=== PATIENT | female | born 2000 | race Hispanic/Latino ===

== ENCOUNTER 2023-04-30 07:50 | Emergency (ER) | payer OTHER | END 2023-04-30 19:00 | disposition home or self-care (01) | LOC: EDH 07:50 | DX: N93.9 Abnormal uterine and vaginal bleeding, unspecified (principal); Z53.21 Procedure and treatment not carried out due to patient leaving prior to being seen by health care provider ==

== ENCOUNTER 2024-06-18 20:54 | Emergency (ER) | payer BC ==
[~2024-06-18] VITALS: Ht 165.1 cm; Wt 158.8 kg
--- NOTE | 2024-06-18 20:57 | NUR ---
UA CUP PROVIDED
--- NOTE | 2024-06-18 21:54 | ERN ---
General Chief Complaint: Ankle Problem Stated Complaint: BILATERAL ANKLE PAIN Time Seen by MD: 20:56 Time Seen by Midlevel: 20:56 Source: patient History of Present Illness Initial Comments Patient Is a pleasant 23-year-old female presenting to the emergency department with bilateral ankle pain. Patient states she recently started a new job and has been on her feet for prolonged period of time. She developed swelling and pain to both ankles. Denies any direct injury. No other symptoms reported at this time. Patient denies taking any medications on a daily basis. Allergies: Coded Allergies: No Known Allergies (Unverified Allergy, Unknown, 06/18/24) Home Meds Active Scripts Ketorolac Tromethamine (Ketorolac Tromethamine) 10 Mg Tablet, 1 TAB PO TID for pain for 5 Days, #15 TAB 0 Refills Prov:JERZY FRY 06/18/24 Past Medical History Past Medical History: Anemia Past Surgical History: None Female( History) LMP: Jun 15, 2024 ROS Dictation CONSTITUTIONAL: Negative except for HPI HEAD/FACE: Negative except for HPI EENT: Negative except for HPI RESPIRATORY: Negative except for HPI GASTROINTESTINAL/ABDOMINAL: Negative except for HPI GENITOURINARY: Negative except for HPI MUSCULOSKELETAL: Negative except for HPI INTEGUMENTARY: Negative except for HPI NEUROLOGICAL/PSYCH: Negative except for HPI HEMATOLOGIC/LYMPHATIC: Negative except for HPI All Systems Negative, Except as noted above. 13 point review of systems assessed and all negative except for above. Physical Exam Physical Exam Dictation Vital Signs reviewed General Appearance: Alert, oriented x 3, no acute distress, well developed, nourished. Head and Face: non-traumatic. Eyes: PERRL, pink conjunctivas, eyelid no trauma, anterior chamber with arcus senilis. Ears: Pinnas intact and no signs of trauma or erythema ear canals clear and no discharge TM no erythema Nose: No discharge, no bleeding. Oropharynx: Mouth normal, tongue pink, pharynx clear,no erythema, tonsils no exudates, no abscesses noted, mucous membrane moist Neck: Supple, non-tender, no thyromegaly, no masses, no JVD, no bruits Breast:Deferred Chest:No tenderness, no crepitus, no paradoxical movement, no retractions Lungs:Clear, well-ventilated, symmetric, no rales, no wheezing, no rhonchi, no stridor, good breath sounds bilaterally Heart: Regular rate, regular rhythm, no murmur, no gallops Vascular: no peripheral edema, Abdomen: Soft, positive bowel sounds, nondistended, no guarding, nontender, no rebound, no masses no hepatomegaly, no splenomegaly, no Greene's sign, no hernias. Rectal: Deferred Genital: Deferred Neurological: Normal speech, motor function intact, sensory function intact Musculoskeletal: Neck nontender, full range of motion, back nontender, full range of motion, Extremities: nontender, full range of motion Skin: Color pink, dry, no turgor, no rash, no lacerations, no abrasions, no contusions. Lymphatic: Deferred MDM MDM: Differential diagnosis: Ankle sprain, ankle fracture, ankle dislocation There are no social concerns with this patient. Prescription drug management Prescriptions will include: Toradol Medical management and examination interpretation discussions were had by me with other qualified healthcare professionals as indicated for the patient's care. ED Course Orders Procedure Category Date Status Time Ankle Comp 3+Vws Genet RAD 06/18/24 Resulted 21:14 Vital Signs Date Time Temp Pulse Resp B/P (MAP) Pulse Ox O2 Delivery O2 Flow Rate FiO2 06/18/24 21:29 100.0 99 20 89/ 98 Room Air* 0 21 06/18/24 20:55 100.0 99 20 156/89 98 Room Air [place] [id number] [address] IMAGING REPORT Signed PATIENT: AMIRA MENDEZ MR#: [id number] : 2000 SEX: F AGE: 23 LOCATION: [facility] ORDER 14 STATUS: REG ER REPORT#: [id number] SERVICE 13 REASON: pain swelling ORDERING PHYSICIAN: JERZY FRY PROCEDURE: ANK3VW GENET - ANKLE COMP 3+VWS GENET LEFT ANKLE RADIOGRAPHS - 3 VIEWS INDICATION: Pain COMPARISON: None FINDINGS: AP, lateral, and oblique views. No fracture or dislocation identified. The talar dome is intact. Ankle mortise and tibial plafond are well maintained. No significant joint effusion is present. No radiopaque foreign body noted. IMPRESSION: No evidence for fracture or dislocation. LEFT FOOT RADIOGRAPHS - 3 VIEWS INDICATION: Pain COMPARISON: None FINDINGS: AP, lateral, and oblique views. No fracture or subluxation identified. Midfoot alignment is well maintained. No radiopaque foreign body noted. IMPRESSION: No evidence for fracture or subluxation. RIGHT ANKLE RADIOGRAPHS - 3 VIEWS INDICATION: Pain COMPARISON: None FINDINGS: AP, lateral, and oblique views. No acute fracture or subluxation identified. The talar dome is intact. Ankle mortise and tibial plafond are well maintained. No significant joint effusion is present. No radiopaque foreign body noted. IMPRESSION: No evidence for fracture or dislocation. DICTATED BY: TOBY MARTINEZ MD DATE: 06/18/242153 ELECTRONICALLY SIGNED BY: TOBY MARTINEZ MD DATE: 06/18/242156 DX & DISP Disposition: Discharge Departure Impression: Primary Impression: Left ankle sprain Condition: Stable Scripts Ketorolac Tromethamine (Ketorolac Tromethamine) 10 Mg Tablet 1 TAB PO TID for pain for 5 Days, #15 TAB 0 Refills Prov: JERZY FRY 06/18/24 Additional Instructions: Your x-ray of the right and left ankle are negative for any acute fracture. Your physical examination is consistent with an ankle sprain. I have given you a prescription for Toradol which should help with your pain. I suggest you stay off her feet for the next 24-48 hours to allow the healing process to start. Return to the ER for any new or worsening symptoms. Follow up with PCP in 2-3 days for repeat evaluation. Referrals: CHIDI HAQUE MD (PCP) Time of Disposition: 21:53 I have reviewed the case, and I agree with, Diagnosis and Plan I performed the substantive portion of the visit. I have reviewed and personally made and approve the management plan that is documented in the note by myself or the SONNY. I acknowledge for responsibility for the patient's management plan. JERZY FRY Jun 18, 2024 21:54
--- NOTE | 2024-06-18 21:57 | HMCIMG ---
LEFT ANKLE RADIOGRAPHS - 3 VIEWS INDICATION: Pain COMPARISON: None FINDINGS: AP, lateral, and oblique views. No fracture or dislocation identified. The talar dome is intact. Ankle mortise and tibial plafond are well maintained. No significant joint effusion is present. No radiopaque foreign body noted. IMPRESSION: No evidence for fracture or dislocation. LEFT FOOT RADIOGRAPHS - 3 VIEWS INDICATION: Pain COMPARISON: None FINDINGS: AP, lateral, and oblique views. No fracture or subluxation identified. Midfoot alignment is well maintained. No radiopaque foreign body noted. IMPRESSION: No evidence for fracture or subluxation. RIGHT ANKLE RADIOGRAPHS - 3 VIEWS INDICATION: Pain COMPARISON: None FINDINGS: AP, lateral, and oblique views. No acute fracture or subluxation identified. The talar dome is intact. Ankle mortise and tibial plafond are well maintained. No significant joint effusion is present. No radiopaque foreign body noted.
[2024-06-18] MEDS ORDERED: KETO10TA2 PO (21:59)
[2024-06-18 22:19] VITALS: BP 146/74; PULSE 94; RESP 20; TEMP 99.2; O2SAT 98
== END 2024-06-18 22:26 | disposition home or self-care (01) ==
LOC: EDH 20:54
DX: S93.402A Sprain of unspecified ligament of left ankle, initial encounter (principal); X58.XXXA Exposure to other specified factors, initial encounter; Y93.89 Activity, other specified; Y92.89 Other specified places as the place of occurrence of the external cause; Y99.8 Other external cause status
CPT/HCPCS: 99283